=== PATIENT | male | born 1965 | race Caucasian/White ===

== ENCOUNTER → 2020-06-02 | Outpatient (CLI) | payer OTHER | END | disposition home or self-care (01) | LOC: STAR 15:56 | PROVIDERS: ATTEND Physician Assistant | DX: Z20.828 Contact with and (suspected) exposure to other viral communicable diseases (principal) | CPT/HCPCS: 87635 ==

== ENCOUNTER 2020-06-08 10:54 | Day surgery (SDC) | payer OTHER ==
[~2020-06-08] VITALS: Ht 180.3 cm; Wt 145.1 kg
[2020-06-08] MEDS ORDERED: CHLORHEXIDINE 15 ML UDC MM ONE (12:00)
[2020-06-08] MEDS ORDERED: LACTATED RINGERS 1,000 ML IV SCH (12:00)
[2020-06-08 12:01] VITALS: BP 160/97
[2020-06-08] MEDS ORDERED: OXYC-302 PO (12:07)
[2020-06-08] MEDS ORDERED: MIDAZOLAM 1 MG/ML, 2ML ONE (12:51)
[2020-06-08] MEDS ORDERED: FENTANYL PF 100 MCG/2ML ONE ×2 (12:51→18:01)
[2020-06-08] MEDS ORDERED: GLYCOPYRROLATE 0.2MG/1ML, 5ML ONE (13:49)
[2020-06-08] MEDS ORDERED: SUCCINYLCHOLINE 20 MG/ML, 10ML ONE (13:49)
[2020-06-08] MEDS ORDERED: ONDANSETRON 2MG/ML, 2ML ONE (13:49)
[2020-06-08] MEDS ORDERED: NEOSTIGMINE 1 MG/ML, 10ML ONE (13:49)
[2020-06-08] MEDS ORDERED: ROCURONIUM 10MG/ML,5ML ONE (13:49)
[2020-06-08] MEDS ORDERED: CEFAZOLIN 1,000 MG ONE ×2 (13:49→16:48)
[2020-06-08] MEDS ORDERED: PROPOFOL 10 MG/ML, 20ML ONE ×2 (13:49→16:48)
[2020-06-08] MEDS ORDERED: DEXAMETHASONE 4 MG/ML, 1ML ONE (13:49)
[2020-06-08] MEDS ORDERED: OXYcodone/APAP 5/325MG TABLET ONE (14:50)
[2020-06-08] MEDS ORDERED: OXYcodone/APAP 5/325MG TABLET PO ONE (15:00)
[2020-06-08] MEDS ORDERED: EPINEPHRINE 1 MG/ML, 1ML ONE (16:06)
[2020-06-08] MEDS ORDERED: BUPIVACAINE/PF 0.5% ONE ×2 (16:06→17:17)
[2020-06-08] MEDS ORDERED: PHENYLEPHRINE 10 MG/ML ONE (16:48)
[2020-06-08] MEDS ORDERED: LIDOCAINE-MPF 2% ,5ML ONE (16:48)
[2020-06-08] MEDS ORDERED: BUPIVACAINE/PF 0.5% INFIL ONE (17:21)
[2020-06-08] MEDS ORDERED: OXYcodone 5 MG/5 ML ORAL.SOL UDC PO PRN (17:30)
[2020-06-08] MEDS ORDERED: MEPERIDINE/PF 25MG/0.5ML IVPush PRN (17:30)
[2020-06-08] MEDS ORDERED: PROMETHAZINE 25 MG/ML, 1ML IVPush PRN (17:30)
[2020-06-08] MEDS ORDERED: METHOCARBAMOL 1,000 MG in DEXTROSE 5% 100 ML IV PRN (17:30)
[2020-06-08] MEDS ORDERED: HYDROmorphone 1 MG/ML, 1ML INJ IVPush PRN (17:30)
[2020-06-08] MEDS ORDERED: HYDROcodone/APAP 7.5-325MG/15ML UDC PO PRN (17:30)
[2020-06-08] MEDS ORDERED: OXYcodone 5 MG/5 ML ORAL.SOL UDC ONE (18:01)
[2020-06-08] MEDS: FENTANYL PF 100 MCG/2ML IV PRN ×3 (18:05→18:35)
== END 2020-06-08 19:25 | disposition home or self-care (01) ==
LOC: OUT 10:54
PROVIDERS: ATTEND Urology
DX: N43.42 Spermatocele of epididymis, multiple (principal); E66.01 Morbid (severe) obesity due to excess calories; F17.200 Nicotine dependence, unspecified, uncomplicated; Z68.41 Body mass index [BMI] 40.0-44.9, adult; Z79.1 Long term (current) use of non-steroidal anti-inflammatories (NSAID); Z79.891 Long term (current) use of opiate analgesic; Z79.899 Other long term (current) drug therapy
CPT/HCPCS: 54840; 88304; 88305; J0171; J0330; J0690; J1100; J2250; J2370; J2405; J2704; J2710; J3010; J7120

== ENCOUNTER 2021-01-11 10:05 | Day surgery (SDC) | payer OTHER ==
[2021-01-09 15:38] LABS: BASOPHILS % (AUTO) 1 % (0-1); EOSINOPHILS % (AUTO) 4 % (1-7); LYMPHOCYTES % (AUTO) 28 % (22-44); MEAN CORPUSCULAR HEMOGLOBIN 31.5 pg (27.5-34.5); MEAN PLATELET VOLUME 6.7 fL (7.4-10.4); MONOCYTES % (AUTO) 11 % (2-9); NEUTROPHILS % (AUTO) 56 % (42-75); PLATELET COUNT 374 x10^3/uL (130-400); RED BLOOD COUNT 5.07 x10^6/uL (4.38-5.82); RED CELL DISTRIBUTION WIDTH 14.1 % (9.4-14.8)
[2021-01-09 15:47] LABS: ALANINE AMINOTRANSFERASE 27 U/L (12-78); ALBUMIN 3.9 g/dL (3.4-5.0); ANION GAP 3 mmol/L (5-15); CALCIUM 9.4 mg/dL (8.5-10.1); CHLORIDE 109 mmol/L (98-107); CREATININE 0.97 mg/dL (0.7-1.3)
[2021-01-09 15:50] LABS: ALKALINE PHOSPHATASE 73 U/L (45-117); BILIRUBIN,TOTAL 0.3 mg/dL (0.2-1.0); TOTAL PROTEIN 7.6 g/dL (6.4-8.2)
[~2021-01-11] VITALS: Ht 180.3 cm; Wt 143.7 kg
[~2021-01-11 10:05] MED LIST: CEFAZOLIN 1,000 MG ONE; DEXAMETHASONE 4 MG/ML, 1ML ONE; FENTANYL PF 250 MCG/5ML ONE; GLYCOPYRROLATE 0.2MG/1ML, 5ML ONE; MELO15TA24 PO; MIDAZOLAM 1 MG/ML, 2ML ONE; NEOSTIGMINE 1 MG/ML, 10ML ONE; ONDANSETRON 2MG/ML, 2ML ONE; OXYC1TAB14 PO; PROPOFOL 10 MG/ML, 20ML ONE; ROCURONIUM 10MG/ML,5ML ONE; TIZA-106 PO
[2021-01-11] MEDS ORDERED: BUPIVACAINE/PF 0.5% ONE (10:15)
[2021-01-11] MEDS ORDERED: EPINEPHRINE 1 MG/ML, 1ML ONE (10:15)
[2021-01-11 10:35] VITALS: BP 137/87
[2021-01-11] MEDS ORDERED: LACTATED RINGERS 1,000 ML IV SCH (11:00)
[2021-01-11] MEDS ORDERED: CHLORHEXIDINE 15 ML UDC PO ONE (11:00)
[2021-01-11] MEDS ORDERED: HYDROmorphone 1 MG/ML, 1ML INJ IVPush PRN (11:30)
[2021-01-11] MEDS ORDERED: FENTANYL PF 100 MCG/2ML IV PRN (11:30)
[2021-01-11] MEDS ORDERED: hydrALAzine 20 MG/ML, 1ML IV PRN (11:30)
[2021-01-11] MEDS ORDERED: morphine SULFATE 10 MG/ML, 1ML IVPush PRN (11:30)
[2021-01-11] MEDS ORDERED: ONDANSETRON 2MG/ML, 2ML IVPush PRN (11:30)
[2021-01-11] MEDS ORDERED: LABETALOL 5MG/ML, 20ML IV PRN (11:30)
[2021-01-11] MEDS ORDERED: ACETAMINOPHEN 325 MG TABLET PO PRN (11:30)
[2021-01-11] MEDS ORDERED: MEPERIDINE/PF 25MG/0.5ML IVPush PRN (11:30)
[2021-01-11] MEDS ORDERED: OXYcodone 5 MG/5 ML ORAL.SOL UDC PO PRN (11:30)
[2021-01-11] MEDS ORDERED: FENTANYL PF 250 MCG/5ML ONE (11:49)
[2021-01-11] MEDS ORDERED: OXYC1TAB14 PO ×2 (12:42→12:55)
[2021-01-11] MEDS ORDERED: OXYC-380 PO (12:45)
[2021-01-11] MEDS ORDERED: ACETAMINOPHEN 650 MG/20.3 ML UDC ONE (13:03)
[2021-01-11] MEDS ORDERED: OXYcodone 5 MG/5 ML ORAL.SOL UDC ONE (13:03)
[2021-01-11] MEDS ORDERED: DIPHENHYDRAMINE 50 MG/ML, 1ML ONE (13:03)
[2021-01-11] MEDS ORDERED: KETOROLAC 30 MG/1 ML ONE (13:22)
[2021-01-11] MEDS ORDERED: DIPHENHYDRAMINE 50 MG/ML, 1ML IVPush PRN (13:30)
[2021-01-11] MEDS ORDERED: KETOROLAC 30 MG/1 ML IVPush ONE (13:30)
== END 2021-01-11 15:00 | disposition home or self-care (01) ==
LOC: OUT 10:05
PROVIDERS: ATTEND Surgery
DX: K40.20 Bilateral inguinal hernia, without obstruction or gangrene, not specified as recurrent (principal); I10 Essential (primary) hypertension; E78.5 Hyperlipidemia, unspecified; F17.210 Nicotine dependence, cigarettes, uncomplicated; Z20.822 Contact with and (suspected) exposure to COVID-19; Z79.1 Long term (current) use of non-steroidal anti-inflammatories (NSAID); Z79.891 Long term (current) use of opiate analgesic; Z79.899 Other long term (current) drug therapy; Z98.1 Arthrodesis status
CPT/HCPCS: 36415; 49650; 71046; 80053; 85025; 93005; C1781; J0171; J0690; J1100; J1200; J1885; J2250; J2405; J2704; J2710; J3010; J7120; S2900; U0003; U0005